=== PATIENT | female | born 1985 | race Caucasian/White ===

== ENCOUNTER 2020-09-06 00:01 | Emergency (ER) | payer SELFPAY ==
[2020-09-06 00:02] VITALS: BP 159/130; PULSE 70; RESP 18; TEMP 36.6; O2SAT 99; BMI 20.5
[2020-09-06 00:19] LABS: Absolute Lymphocyte Count 3.55 X10^3/uL (0.83-4.51); Absolute Neutrophil Count 3.7 X10^3/uL (2.0-7.7); Basophil# 0.03 X10^3/uL; Basophil% 0.4 % (0-1); Eosinophil# 0.25 X10^3/uL; Hematocrit 44.4 % (37-47); Hemoglobin 14.1 g/dL (12.0-15.0); Lymphocyte # 3.55 X10^3/ul (0.83-4.51); Lymphocyte % 43.2 % (19-41); Mean Corp Hgb Conc 31.8 g/dL (32-36); Mean Corpuscular Hgb 27.5 pg (27.0-32.0); Mean Corpuscular Volume 86.5 fL (81-99); Mean Platelet Vol. 9.3 fl (6.2-12.0); Monocyte# 0.59 X10^3/uL; Monocyte% 7.2 % (0-10); NRBC Flagged by Analyzer 0 % (0-5); Neutrophil # 3.73 X10^3/uL (2.7-7.7); Neutrophil % 45.5 % (47-70); Platelet Count 252 K/mm3 (150-450); RBC Distribution Width CV 13.2 % (11.6-14.6); RBC Distribution Width SD 41.6 fl (35.1-43.9); Red Blood Count 5.13 M/mm3 (4.2-5.4); White Blood Count 8.2 K/mm3 (4.4-11.0)
[2020-09-06 00:20] VITALS: RESP 16
--- NOTE | 2020-09-06 00:21 | ED.RN ---
PT VERBALIZES THAT SHE JUST WANTS TO LAY DOWN AND SLEEP. SHE HAS ONLY BEEN IN [place] FOR LESS THAN 24 HOURS AND HAS NO PLACE TO STAY. PER DR. SMITH PT SEEMS MORE DEPRESSED THAN SUICIDAL SHE DOES NOT HAVE A PLAN. NO SITTER ORDERED PER DR. SMITH.
--- NOTE | 2020-09-06 00:26 | EDS_ITS ---
HPI HPI - Psych History of Present Illness Chief Complaint: Depression Narrative Narrative: Patient presenting for depression and suicidal thoughts. Patient is from [place], is here transiently with the fair working. Patient states that she is never been this far away from home, and she wants to go home. Patient states that since that he was a teenager she has had feelings of suicidality and wishing that she was not here. Patient states that tonight someone brought her in because she was standing in the middle of the street screaming God just strike me down. Patient states that basically on a daily basis she will have suicidal thoughts. She is never really had any sort of specific plan and she does not tonight. She denies being homicidal or hallucinating. Somatically the patient states that she has been dealing with some flank pain recently and does have a history of pyelonephritis in the past. She denies any fevers. Review of systems otherwise negative. PFSH PFSH Home Medications ciprofloxacin HCl [Cipro] 500 mg PO Q12H #14 tab 09/06/20 [Rx Last Taken Unknown] Allergy/AdvReac Type Severity Reaction Status Date / Time meperidine [From Demerol] Allergy Rash Verified 09/06/20 00:05 Sulfa (Sulfonamide Allergy Rash Verified 09/06/20 00:05 Antibiotics) Social History Smoking Status: Current every day smoker tobacco type: cigarettes ROS ROS ED Constitutional Constitutional ED: Denies chills or fever(s) ENT ENT ED: Denies rhinorrhea Cardiovascular Cardiovascular: Denies chest pain Respiratory/Chest Respiratory/Chest: Denies cough or dyspnea Gastrointestinal Gastrointestinal: Reports abdominal pain and other Details: Flank pain ; Denies diarrhea, nausea or vomiting Genitourinary Genitourinary ED: Denies dysuria or hematuria Musculoskeletal Musculoskeletal: Denies back pain Integumentary Denies rash Neurologic Neurologic: Denies paresthesias or weakness Psychiatric Psychiatric: Reports depression and suicidal thoughts Endocrine Endocrinology: Denies fatigue Allergic/Immunologic Allergic/Immunologic ED: Denies urticaria EXAM Physical Exam Const Vital Signs: 09/06/20 00:02 09/06/20 00:20 Temperature 97.8 F Temperature Source Temporal Pulse Rate 70 Respiratory Rate 18 16 Blood Pressure 159/130 H Blood Pressure Mean 139 Pulse Ox 99 Positive well nourished and well developed Constitutional Narrative: Patient is very tearful but otherwise not in physio logic distress General Appearance ED: well developed HEENT Reports moist mucous membranes Negative for trauma or tenderness Eyes EOMs intact bilaterally Eyes Narrative: Scleral injection is noted bilaterally Neck no lymphadenopathy, supple and no JVD Chest Wall inspection of chest normal Resp normal respiratory effort and clear to auscultation bilaterally Cardio regular rate, regular rhythm and peripheral pulses 2+ throughout Rate: regular rate Rhythm: regular rhythm GI normal to inspection, nondistended, normoactive bowel sounds and no masses Palpation: soft and tender RUQ; Negative for guarding Back/Spine normal to inspection Extremity normal to inspection General Extremety ED: Negative for tenderness Neuro oriented x3 and no sensory deficits noted Sensorium / Orientation: alert Motor Exam: strength 5/5 throughout Psych Psych Narrative: Patient is tearful and reports having suicidal thoughts. She denies having a plan. She denies being homicidal or hallucinating. Skin no rashes or lesions noted MDM MDM MDM Narrative Medical decision making narrative: Patient presented for psychiatric evaluation. On screening labs, the patient had some abdominal tenderness and was complaining that she potentially had a urinary tract infection she was positive for urinary tract infection, she is allergic to Bactrim and she did report a mild amount of flank pain so this to be treated with Cipro. First dose given in the emergency department. Patient was cleared for evaluation by psych, after evaluation by them they feel that the patient is not a imminent risk to herself or others. I basically in agreement, I think the patient more or less is depressed and was looking for a place to stay. Patient will be given a safety plan. Patient will be discharged with a course of Cipro for treatment of her urinary tract infection. Lab Data Labs: Laboratory Results - last 24 hr 09/06/20 09/06/20 09/06/20 00:15 00:15 00:15 WBC 8.2 RBC 5.13 Hgb 14.1 Hct 44.4 MCV 86.5 MCH 27.5 MCHC 31.8 L RDW Std Deviation 41.6 RDW Coeff of Barry 13.2 Plt Count 252 MPV 9.3 Immature Gran % (Auto) 0.700 Neut % (Auto) 45.5 L Lymph % (Auto) 43.2 H Morrison % (Auto) 7.2 Eos % (Auto) 3.0 Baso % (Auto) 0.4 Absolute Neuts (auto) 3.7 Absolute Lymphs (auto) 3.55 Nucleated RBC % 0 Sodium 138 Potassium 3.7 Chloride 105 Carbon Dioxide 29.0 Anion Gap 4 L BUN 11 Creatinine 0.83 Estim Creat Clear Calc 85.20 Est GFR (MDRD) Af Amer 100 Est GFR (MDRD) Non-Af 83 BUN/Creatinine Ratio 13.3 Glucose 91 Calcium 9.2 Total Bilirubin 0.20 AST 16 ALT 12 L Alkaline Phosphatase 121 H Total Protein 8.0 Albumin 3.9 Globulin 4.1 Albumin/Globulin Ratio 1.0 Lipase 154 TSH 1.98 Serum , Qual Urine Color Urine Clarity Urine pH Ur Specific [place] Urine Protein Urine Glucose (UA) Urine Ketones Urine Occult Blood Urine Nitrite Urine Bilirubin Urine Urobilinogen Ur Leukocyte Esterase Urine RBC Urine WBC Ur Squamous Epith Cells Urine Bacteria Urine Mucus Urine Opiates Screen Urine Methadone Screen Ur Barbiturates Screen Ur Phencyclidine Scrn Ur Amphetamines Screen U Methamphetamin-MDMA U Benzodiazepines Scrn Urine Cocaine Screen U Cannabinoids Screen Ur Drug Screen Comment Ethyl Alcohol < 3.0 09/06/20 09/06/20 09/06/20 00:15 00:30 00:30 WBC RBC Hgb Hct MCV MCH MCHC RDW Std Deviation RDW Coeff of Barry Plt Count MPV Immature Gran % (Auto) Neut % (Auto) Lymph % (Auto) Morrison % (Auto) Eos % (Auto) Baso % (Auto) Absolute Neuts (auto) Absolute Lymphs (auto) Nucleated RBC % Sodium Potassium Chloride Carbon Dioxide Anion Gap BUN Creatinine Estim Creat Clear Calc Est GFR (MDRD) Af Amer Est GFR (MDRD) Non-Af BUN/Creatinine Ratio Glucose Calcium Total Bilirubin AST ALT Alkaline Phosphatase Total Protein Albumin Globulin Albumin/Globulin Ratio Lipase TSH Serum , Qual NEGATIVE Urine Color Yellow Urine Clarity Sl. Cloudy Urine pH 6.0 Ur Specific [place] 1.020 Urine Protein 30 H Urine Glucose (UA) Normal Urine Ketones Negative Urine Occult Blood 250 H Urine Nitrite Positive H Urine Bilirubin Negative Urine Urobilinogen Normal Ur Leukocyte Esterase 500 H Urine RBC 25-50 SEEN Urine WBC 25-50 SEEN Ur Squamous Epith Cells 10-25 SEEN Urine Bacteria 3+ Urine Mucus 0 SEEN Urine Opiates Screen NEGATIVE Urine Methadone Screen NEGATIVE Ur Barbiturates Screen NEGATIVE Ur Phencyclidine Scrn NEGATIVE Ur Amphetamines Screen POSITIVE H U Methamphetamin-MDMA NEGATIVE U Benzodiazepines Scrn NEGATIVE Urine Cocaine Screen NEGATIVE U Cannabinoids Screen POSITIVE H Ur Drug Screen Comment Ethyl Alcohol Discharge Plan Triage Chief Complaint: Depression ED Provider: Rohit Banks Dx/Rx/DC Orders Clinical Impression: Depression, Urinary tract infection Instructions: ED Depression, ED CYSTITIS Female Adult Prescriptions: New ciprofloxacin HCl [Cipro] 500 mg tablet 500 mg PO Q12H Qty: 14 RF: 0 Primary Care Provider: Care Physician,No Primary Referrals: Counseling,Center [GROUP OF PHYSICIANS] - As Needed Ally Delong [NON-STAFF] - 1 Week if not improving Care Physician,No Primary [Primary Care Provider] - Disposition Disposition: Home, Self Care
[2020-09-06 00:29] LABS: Internal QC Validated? YES +Cl - CLEAR BKGD; Pregnancy, Serum, hCG Quali. NEGATIVE Negative
[2020-09-06 00:34] LABS: Mucous, Urine 0 SEEN /hpf (<or=2+)
[2020-09-06 00:35] LABS: Color, Urine Yellow (Yellow); Glucose, Dipstick Normal (Normal); Ketone-Dipstick Negative (Negative); Leukocyte Esterase-Dipstick 500 /ul (Negative); Nitrite-Dipstick Positive (Negative); Occult Blood-Urine 250 /ul (Negative); Protein-Dipstick 30 mg/dl (Negative); Urine Bilirubin Dipstick Negative (Negative); Urine Clarity Sl. Cloudy (Clear); Urine Urobilinogen Normal (Normal)
[2020-09-06 00:36] LABS: Alcohol, Blood (Medical)-Serum < 3.0 mg/dL
[2020-09-06 00:41] LABS: Bacteria 3+ /hpf (None Seen); Red Blood Cells-Urine 25-50 SEEN /hpf (0-5); Squamous Epithelial Cells - UA 10-25 SEEN /hpf (5-10); White Blood Cells 25-50 SEEN /hpf (0-5)
[2020-09-06 00:47] LABS: AST(SGOT) 16 U/L (15-37); Alanine Aminotransfer ALT/SGPT 12 U/L (13-56); Albumin, Serum 3.9 g/dL (3.2-5.0); Alkaline Phosphatase 121 U/L (45-117); Anion Gap 4 (5-15); BUN 11 mg/dL (7-18); BUN/Creat Ratio 13.3 RATIO (10-20); Calcium,Total 9.2 mg/dL (8.5-10.1); Chloride 105 mmol/L (98-107); Creatinine, Serum 0.83 mg/dL (0.55-1.02); EST Glomerular Filtration Rate 83 mL/min (>60); Est Glom Filt Rate - Afr Amer 100 mL/min (>60); Globulin 4.1 g/dL (2.2-4.2); Glucose 91 mg/dL (74-106); Lipase 154 U/L (73-393); Potassium 3.7 mmol/L (3.5-5.1); Sodium Level 138 mmol/L (136-145); Thyroid Stim Hormone (TSH) 1.98 uIU/mL (0.358-3.74)
[2020-09-06 00:47] LABS: Amphetamine Urine VISTA POSITIVE (<1000 ng/mL); Barbiturate Urine VISTA NEGATIVE (< 200 ng/mL); Benzodiazepine Urine VISTA NEGATIVE (< 200 ng/mL); Cocaine Urine VISTA NEGATIVE (< 300 ng/mL); Ecstacy Urine VISTA NEGATIVE (< 500 ng/mL); Methadone Urine VISTA NEGATIVE (< 300 ng/mL); PCP Urine VISTA NEGATIVE (< 25 ng/mL); THC Urine VISTA POSITIVE (< 50 ng/mL); Vista UDS pH Range 6
[2020-09-06] MEDS: Ciprofloxacin 500 MG Tablet PO (00:59)
--- NOTE | 2020-09-06 01:58 | ED.RN ---
UPON ATTEMPTING TO DISCHARGE PT, SHE REFUSES TO LEAVE STATING THAT YOU CAN GET THE FUCKING POLICE I AIN'T LEAVING I NEED TO SLEEP [employer] OFFICER [employer] NOTIFIED, PT ARGUED WITH OFFICER IRMA THEN LEFT STATING YOU CAN KEEP YOUR DAMN DISCHARGE INSTRUCTIONS, THREW DISCHARGE INSTRUCTIONS AT DESK AND LEFT.
== END 2020-09-06 02:05 | disposition home or self-care (01) ==
PROVIDERS: Emergency Provider Emergency Medicine
DX: F32.9 Major depressive disorder, single episode, unspecified (principal); N39.0 Urinary tract infection, site not specified; F17.210 Nicotine dependence, cigarettes, uncomplicated
CPT/HCPCS: 80053; 80307; 81001; 82077; 83690; 84443; 84703; 85025; 99283